=== PATIENT | female | born 1980 | race Caucasian/White ===

== ENCOUNTER 2018-07-10 11:47 | Inpatient (IN) ==
--- NOTE | 2018-07-10 12:21 | Emergency Department Note ---
Disposition Clinical Impression: Cellulitis Disposition: Admitted As Inpatient Condition: Good Time of Disposition: 16:37 Skin/Abscess/FB HPI Chief complaint: ED Skin/Abscess/Foreign Body Stated complaint: Vaginal Abscess,ABD Pain,fever Time Seen by Provider: 07/10/18 11:52 Source: patient Mode of arrival: ambulatory Limitations: no limitations Nursing Notes Reviewed: Yes Vital Signs Reviewed: Yes HPI Narrative: Patient presents to the ED the chief complaint of an abscess to her pubic area. States that she has had some folliculitis-type symptoms over the last couple weeks, but this most recent one started about 4 days ago and has progressively worsened. She went to urgent care yesterday and was placed on Bactrim and told to come the ER if things get worse. She woke up this morning. The pain and swelling was worse, extending down into her labia with feeling generally weak and fatigued. No fever or chills. States she does not feel like she is getting any better. She recently had an endometrial ablation with Dr. Mccollum and states she has had some vaginal discharge but that has been no change since the procedure. No chest pain or shortness breath. Home Medications Medication Instructions Recorded Confirmed Cetirizine HCl [Zyrtec] 10 mg PO DAILY 05/25/18 07/10/18 Promethazine HCl 12.5 mg PO TID PRN 05/25/18 07/10/18 Rizatriptan Benzoate [Maxalt] 10 mg PO Q2H PRN 05/25/18 07/10/18 Topiramate [Topamax] 100 mg PO BID 05/25/18 07/10/18 buPROPion HCl [Bupropion HCl Sr] 200 mg PO BID 05/25/18 07/10/18 clonazePAM [Klonopin] 0.5 mg PO DAILY PRN 05/25/18 07/10/18 Allergies Allergy/AdvReac Type Severity Reaction Status Date / Time No Known Allergies Allergy Verified 07/09/18 19:59 Review of Systems: As reviewed in the HPI. All other systems reviewed are negative or normal. Past Medical History - Past Medical History Attestation: Yes The following information was validated with the patient. Source: patient Medical history: Reports: non-contributory Psychiatric history: Reports: anxiety, depression - Social History Smoking Status: Never smoker Smokeless Tobacco Status: No Alcohol use: Reports: none Drug use: Reports: none Physical Exam CONSTITUTIONAL: [well appearing, alert and in no acute distress] EYES: [EOMI, clear conjunctiva, PERRLA] HENT: [Normocephalic, atraumatic, moist mucus membranes, normal oropharynx] NECK: [normal inspection, full ROM, trachea midline, no obvious swelling] PULMONARY: [normal lung sounds bilaterally, normal chest rise and fall, no respiratory distress or stridor, no wheezes, no rales, no rhonchi CARDIOVASCULAR: [regular rate, regular rhythm, normal heart sounds, no murmurs, distal extremities are warm and well perfused] GASTROINSTESTINAL: [soft, non-tender, non-rigid, non-distended, no guarding, no rebound, normal bowel sounds] GENITOURINARY/RECTAL: [deferred] NEUROLOGIC: [Alert, oriented x3, normal speech, moves all extremities] EXTREMITIES: [Normal inspection, full ROM, no tenderness, no pedal edema, normal capillary refill] MUSCULOSKELETAL: [no gross deformities, atraumatic] SKIN: [There is a large poorly circumscribed area of swelling on the midline mons pubis with mild fluctuance and erythema with surrounding cellulitis and warmth. There is no head or drainage. Moderately tender extending down into the labia worse on the right and left. No vaginal discharge. No cyanosis, no diaphoresis, normal color.] PSYCHIATRIC: [normal mood and affect] Course Course Narrative: Patient presenting with a mons pubis abscess. It is swollen and erythematous. There is no areas of ischemia or obvious abscess. Will bedside ultrasound to evaluate for abscess for incision and drainage. - Reevaluation(s) Reevaluation #1: US probe malfunction, could not evaluate cellulitis vs abscess. Will get labs/ IVF/CT Time: 12:53 Reevaluation #2: CT did not show abscess. will admit to hospitalist service. Vital Signs Temperature 98.6 F 07/10/18 11:50 Pulse Rate 99 07/10/18 11:50 Respiratory Rate 15 07/10/18 11:50 Blood Pressure 110/56 07/10/18 11:50 O2 Sat by Pulse Oximetry 98 07/10/18 11:50 Temperature 98.0 F 07/10/18 18:06 Pulse Rate 85 07/10/18 18:06 Respiratory Rate 17 07/10/18 18:06 Blood Pressure 117/79 07/10/18 18:06 O2 Sat by Pulse Oximetry 97 07/10/18 18:06 Oxygen Delivery Oxygen Delivery Room Air Procedures - Ultrasound-Other Narrative: Emergency Department Limited Focused Soft-tissue Bedside Ultrasound Indication: cellultis, rule out fluid collection/abscess Findings: A bedside limited focused ultrasound of the soft tissue was performed by myself in the emergency department. Images were not saved to the ultrasound machine hard drive due to device malfunction.A high frequency linear array probe was utilized to visualize the soft-tissue structures in transverse and longitudinal views but was indeterminate due to probe malfunction and no definite imaging could be visualized. Impression: unable to assess due to equipment malfunction. Skin/Abscess/Foreign Body - Lab Data Result diagrams: 07/10/18 13:39 07/10/18 13:04 Lab Results 07/10/18 07/10/18 07/10/18 Range/Units 13:04 13:25 13:39 WBC 12.0 H (4.3-11.1) K/mcL RBC 4.63 (3.82-4.97) M/mcL Hgb 13.3 (11.5-15.4) g/dL Hct 40.2 (35.3-44.9) % MCV 86.8 (83.0-100.0) fL MCH 28.7 (28.0-33.3) pg MCHC 33.1 (31.6-35.5) g/dL RDW 13.0 (11.5-14.5) % Plt Count 208 (140-400) K/mcL MPV 9.9 (9.4-12.4) fL Immature Gran % 0.3 (0-4) % Seg Neutrophils % 67.5 % Lymphocytes % 22.1 % Monocytes % 7.5 % Eosinophils % 2.1 % Basophils % 0.5 % Neutrophils # 8.1 (1.6-8.9) K/mcL Lymphocytes # 2.7 (0.6-4.6) K/mcL Monocytes # 0.9 (0.0-1.3) K/mcL Eosinophils # 0.3 (0.0-0.6) K/mcL Basophils # 0.1 (0.0-0.2) K/mcL Immature Plt Fraction 2.8 (1.1-6.1) % Sodium 135 L (136-145) mEq/L Potassium 3.8 (3.5-5.1) mEq/L Chloride 105 (98-107) mEq/L Carbon Dioxide 22 L (23-29) mEq/L BUN 10 (6-20) mg/dL Creatinine 0.89 (0.60-1.20) mg/dL Est GFR ( Amer) > 60 (> 60) Est GFR (Non-Af Amer) > 60 (> 60) BUN/Creatinine Ratio 11 (6-26) Glucose 84 (70-105) mg/dL Calculated Osmolality 278 L (280-300) Calcium 8.7 (8.6-10.3) mg/dL Specimen Rejected Clotted
[2018-07-10] MEDS ORDERED: *HR* OxyCODONE/APAP 5/325 TABLET PO ONE (12:25)
[2018-07-10] MEDS ORDERED: Lidocaine/EPI 1:100k 1% 30 ML VIAL INFILT ONE (12:30)
[2018-07-10] MEDS ORDERED: *HR* HYDROmorphone (PF) 1 MG/ML SYRINGE IVP ONE (12:52)
[2018-07-10] MEDS ORDERED: Isovue-370 500 ML INFUS..BTL IV ONE (12:52)
[2018-07-10] MEDS ORDERED: 0.9 % Sodium Chloride 1,000 ML IVC ONE (12:52)
--- NOTE | 2018-07-10 13:06 | Emergency Department Note ---
Disposition Clinical Impression: Cellulitis Disposition: Admitted As Inpatient Condition: Good General Adult HPI - General Chief complaint: ED Skin/Abscess/Foreign Body Stated complaint: Vaginal Abscess,ABD Pain,fever Time Seen by Provider: 07/10/18 11:52 - History of Present Illness Pain Scale: 7 - Related Data Home Medications Medication Instructions Recorded Confirmed Cetirizine HCl [Zyrtec] 10 mg PO DAILY 05/25/18 07/10/18 Promethazine HCl 12.5 mg PO TID PRN 05/25/18 07/10/18 Rizatriptan Benzoate [Maxalt] 10 mg PO Q2H PRN 05/25/18 07/10/18 Topiramate [Topamax] 100 mg PO BID 05/25/18 07/10/18 buPROPion HCl [Bupropion HCl Sr] 200 mg PO BID 05/25/18 07/10/18 clonazePAM [Klonopin] 0.5 mg PO DAILY PRN 05/25/18 07/10/18 Allergies Allergy/AdvReac Type Severity Reaction Status Date / Time No Known Allergies Allergy Verified 07/09/18 19:59 Past Medical History - Past Medical History Medical history: Reports: non-contributory Psychiatric history: Reports: anxiety, depression - Social History Smoking Status: Never smoker Smokeless Tobacco Status: No Alcohol use: Reports: none Drug use: Reports: none Course Vital Signs Temperature 98.6 F 07/10/18 11:50 Pulse Rate 99 07/10/18 11:50 Respiratory Rate 15 07/10/18 11:50 Blood Pressure 110/56 07/10/18 11:50 O2 Sat by Pulse Oximetry 98 07/10/18 11:50 Temperature 98.0 F 07/10/18 18:06 Pulse Rate 85 07/10/18 18:06 Respiratory Rate 17 07/10/18 18:06 Blood Pressure 117/79 07/10/18 18:06 O2 Sat by Pulse Oximetry 97 07/10/18 18:06 Oxygen Delivery Oxygen Delivery Room Air Medical Decision Making - Lab Data Result diagrams: 07/10/18 13:39 07/10/18 13:04 Lab Results 07/10/18 07/10/18 07/10/18 Range/Units 13:04 13:25 13:39 WBC 12.0 H (4.3-11.1) K/mcL RBC 4.63 (3.82-4.97) M/mcL Hgb 13.3 (11.5-15.4) g/dL Hct 40.2 (35.3-44.9) % MCV 86.8 (83.0-100.0) fL MCH 28.7 (28.0-33.3) pg MCHC 33.1 (31.6-35.5) g/dL RDW 13.0 (11.5-14.5) % Plt Count 208 (140-400) K/mcL MPV 9.9 (9.4-12.4) fL Immature Gran % 0.3 (0-4) % Seg Neutrophils % 67.5 % Lymphocytes % 22.1 % Monocytes % 7.5 % Eosinophils % 2.1 % Basophils % 0.5 % Neutrophils # 8.1 (1.6-8.9) K/mcL Lymphocytes # 2.7 (0.6-4.6) K/mcL Monocytes # 0.9 (0.0-1.3) K/mcL Eosinophils # 0.3 (0.0-0.6) K/mcL Basophils # 0.1 (0.0-0.2) K/mcL Immature Plt Fraction 2.8 (1.1-6.1) % Sodium 135 L (136-145) mEq/L Potassium 3.8 (3.5-5.1) mEq/L Chloride 105 (98-107) mEq/L Carbon Dioxide 22 L (23-29) mEq/L BUN 10 (6-20) mg/dL Creatinine 0.89 (0.60-1.20) mg/dL Est GFR ( Amer) > 60 (> 60) Est GFR (Non-Af Amer) > 60 (> 60) BUN/Creatinine Ratio 11 (6-26) Glucose 84 (70-105) mg/dL Calculated Osmolality 278 L (280-300) Calcium 8.7 (8.6-10.3) mg/dL Specimen Rejected Clotted Attestation Statement - Attestation Attestation: I examined this patient and my medical decision-making was reviewed with the Resident Physician. I agree with the documented findings, disposition and treatment plan as described except to the extent set forth below. Patient presents to the ED with an abscess. Patient states the symptoms started last weekend with a pimple. She states she drained Friday but it is progressed. Went to urgent care yesterday and was started on Bactrim. On examination she is a large fluctuant area over the mons pubis. She has erythema and swelling ascending inferiorly into her labia majora. Plan. CT pelvis with contrast. CT shows cellulitis. Patient on IV antibiotic. She has been worsening on by mouth. We will admit.
[2018-07-10] MEDS ORDERED: Piperacillin/Tazobactam 3.375 GM in 0.9 % Sodium Chloride Mini Bag 100 ML IVPB ONE (13:07)
[2018-07-10 15:01] LABS: BUN/Creatinine Ratio 11 (6-26); Blood Urea Nitrogen 10 mg/dL (6-20); Calcium 8.7 mg/dL (8.6-10.3); Carbon Dioxide 22 mEq/L (23-29); Chloride 105 mEq/L (98-107); Glucose 84 mg/dL (70-105); Osmolality,Calculated 278 (280-300); Potassium 3.8 mEq/L (3.5-5.1); Sodium 135 mEq/L (136-145); eGFR For Non-African Americans > 60 (> 60)
[2018-07-10 15:04] LABS: Basophils # 0.1 K/mcL (0.0-0.2); Basophils % 0.5 %; Eosinophils # 0.3 K/mcL (0.0-0.6); Eosinophils % 2.1 %; Hematocrit 40.2 % (35.3-44.9); Hemoglobin 13.3 g/dL (11.5-15.4); Immature Granulocytes % 0.3 % (0-4); Immature Platelets 2.8 % (1.1-6.1); Lymphocytes # 2.7 K/mcL (0.6-4.6); Lymphocytes % 22.1 %; Mean Corpuscular HGB Conc 33.1 g/dL (31.6-35.5); Mean Corpuscular Hemoglobin 28.7 pg (28.0-33.3); Mean Corpuscular Volume 86.8 fL (83.0-100.0); Mean Platelet Volume 9.9 fL (9.4-12.4); Monocytes # 0.9 K/mcL (0.0-1.3); Monocytes % 7.5 %; Neutrophils # 8.1 K/mcL (1.6-8.9); Platelet Count 208 K/mcL (140-400); Red Blood Count 4.63 M/mcL (3.82-4.97); Segmented Neutrophils % 67.5 %
[2018-07-10] MEDS ORDERED: *HR* Promethazine 25 MG/ML VIAL IVP PRN (17:49)
[2018-07-10] MEDS ORDERED: Naloxone 0.4 MG/ML INJ IVP PRN (17:49)
[2018-07-10] MEDS ORDERED: Ondansetron 4 MG/2 ML VIAL IVP PRN (17:49)
--- NOTE | 2018-07-10 18:30 | Internal Med History&Physical ---
Date of Encounter: 07/10/18 Time of Encounter: 18:25 Internal Medicine - H&P: HPI Chief complaint: Supra pubic rash, swellign and pain Admitted From: Emergency Dept Plans for Post Hospital Care: Home History of present illness: Ms. Canchola is a 38 year old female with known past medical history of endometriosis recent status post ablation done by Dr. Mccollum in May now she presented emergency room complaining about suprapubic worsening swelling with tenderness. Patient stated that she noticed a small pimple like growth on the supra pubic area a week ago which seems to progressive worsening. She went to local urgent care center last night who started her on Bactrim. However patient symptoms has not improved today seems to be even worsening swelling with edema and tenderness which prompted her to come to our emergency room. Here in the ER her CT of the abdomen and pelvis showed cellulitis of the anterior pelvic wall. Patient was started on empirical antibiotic Zosyn and vancomycin. Patient denied any history of STD. No trauma. Denied any previous h /o cellulites / abscess Past Med Surg Social Fam HX - Past Medical History Medical history: hyperlipidemia, hypertension Psychiatric history: anxiety, depression - Past Surgical History Additional surgical history: uterine ablasion 05/2018 - Social History Smoking Status: Never smoker Smokeless Tobacco Status: No Alcohol use: rarely Drug use: none - Additional Family History Additional family history: Family hsitory reviewed and non contribuitory to current problem. Internal Medicine - H&P: Meds Cetirizine HCl [Zyrtec] 10 mg PO DAILY 05/25/18 [History] Promethazine HCl 12.5 mg PO TID PRN 05/25/18 [History] Rizatriptan Benzoate [Maxalt] 10 mg PO Q2H PRN 05/25/18 [History] Topiramate [Topamax] 100 mg PO BID 05/25/18 [History] buPROPion HCl [Bupropion HCl Sr] 200 mg PO BID 05/25/18 [History] clonazePAM [Klonopin] 0.5 mg PO DAILY PRN 05/25/18 [History] 3 Allergy/AdvReac Type Severity Reaction Status Date / Time No Known Allergies Allergy Verified 07/09/18 19:59 All Systems PM: A 10-system review of systems was performed and is negative for pertinent findings except as documented above in the HPI. Review of systems: All the systems are reviewed everything is benign except the systems and symptoms I mentioned in the history of present illness - Constitutional Vitals: Temp Pulse Resp BP Pulse Ox 98.0 F 85 17 117/79 97 07/10/18 18:06 07/10/18 18:06 07/10/18 18:06 07/10/18 18:06 07/10/18 18:06 General appearance: Present: cooperative, A&O X 3, no acute distress, answers questions appropriately Exam: See below - Head Head exam: Present: atraumatic, normal inspection - Neck Neck exam general surgery: Present: supple - Respiratory Respiratory exam: Present: decreased breath sounds. Absent: rales, respiratory distress, rhonchi, wheezes - Cardiovascular Cardiovascular exam: Present: RRR, +S1, +S2. Absent: tachycardia - GI/Abdominal GI/Abdominal exam: Present: normal bowel sounds, soft. Absent: rebound, rigid, tenderness - External exam: Present: erythema, swelling (Suprapubic area) Additional comments: Noticed fire times 5 cm size moderate swelling with edema and tenderness of the suprapubic region does feel like loculated fluid collection Suprapubic area - Extremities Exam Extremities exam: Absent: calf tenderness, pedal edema, tenderness - Back Exam Back exam: Absent: CVA tenderness (L), CVA tenderness (R) - Neurological Exam Neurological exam: Present: alert, oriented X3 - Psychiatric Psychiatric exam: Present: normal affect, normal mood - Skin Skin exam: Absent: rash Internal Med - H&P Results - Labs CBC & Chem 7: 07/10/18 13:39 07/10/18 13:04 - Assessment and plan (1) Cellulitis of pubic region Current Visit: Yes Status: Acute Assessment and plan: Place the patient into Med Surg for observation failed outpatient therapy with oral antibiotic started on empirical antibiotic with IV Zosyn and vancomycin she may get benefit with I & D tax investigator consulted IV hydration (2) Anxiety Current Visit: Yes Status: Acute Assessment and plan: Resumed home medication - Time Spent With Patient Total time spent is greater than 50% in coordination of care (as documented) at patient's floor/unit and/or counseling patient:
[2018-07-10] MEDS ORDERED: (Rizatriptan Benzoate [Maxalt] 10 MG) PO PRN (18:37)
--- NOTE | 2018-07-10 19:22 | OB/GYN Consult Note ---
Date of Encounter: 07/10/18 Time of Encounter: 19:18 Assessment and Plan (1) History of MRSA infection Current Visit: Yes Status: Acute MRSA precautions (2) Anxiety Current Visit: Yes Status: Acute (3) Cellulitis Current Visit: Yes Status: Acute Continue current antibiotics possible I&D it area becomes fluctuant after 24-48 hours of antibiotics Qualifiers: Site of cellulitis: other site Qualified Code(s): L03.818 - Cellulitis of other sites (4) Cellulitis of pubic region Current Visit: Yes Status: Acute History of Present Illness Consult date: 07/10/18 Reason for consult: other (Cellulitis mons pubis) History of present illness: Patient is a 38-year-old every 3 para 3 last period approximately 2 months ago status post endometrial ablation in May. Presented to the emergency room complaining of severe pain and swelling to the mons pubis. Patient states over the weekend she had a small lesion in the mons which she thought was just an infected hair follicle she thought it would go away but states is starts progressively getting worse than over the past 48 hours the whole mons became swollen and red and very painful. Patient went to urgent care who recommended she come to the emergency room. Patient did not arrive to the emergency room with she was then admitted by the hospitalists for medical management. We asked to come and assess the patient to determine if the patient need an I&D of the area. While in the emergency room a CT scanning an ultrasound was performed both are relatively unremarkable it just showed stranding of the fatty tissue but no free fluid suggestive of anything I could I&D. Patient approximately 5 years ago did have an abscess in her nose which they cultured out positive for MRSA. Patient is not complaining of any issues from her ablation does not have any periods anymore. She did do a follow-up with her stoper after that surgery and everything was okay. She did not call our office when this came up but it would go away this ended up coming to the emergency room. Past Med Surg Social Fam HX - Past Medical History Source: patient, old records reviewed Medical history: hyperlipidemia, hypertension Psychiatric history: anxiety, depression - Past Surgical History Additional surgical history: uterine ablasion 05/2018 - Social History Smoking Status: Never smoker Smokeless Tobacco Status: No Alcohol use: rarely Drug use: none Recent Out of Country Travel Within the Last 8 Weeks: No Exposure or Possible Exposure to Illness During Travel: No - Family History Mother Living Status: Still Living Hx Family Cardiac Disorders: Yes (HTN) Hx Family Respiratory Disorders: No Hx Family Cancer: No Hx Family GI Disorders: No Hx Family Genitourinary Disorders: Yes (kidney stones) Hx Family Endocrine Disorder: No Hx Family Musculoskeletal Disorders: No Hx Family Neuromuscular Disorders: No Hx Family Neurologic Disorders: No Hx Family HEENT Disorders: No Hx Family Autoimmune Disorders: No Hx Family Reproductive Disorders: No Hx Family Psychosocial Disorders: Yes Hx Family Medical Disorders: No Father Living Status: Still Living Hx Family Cardiac Disorders: No Hx Family Respiratory Disorders: No Hx Family Cancer: No Hx Family GI Disorders: No Hx Family Genitourinary Disorders: No Hx Family Endocrine Disorder: No Hx Family Musculoskeletal Disorders: No Hx Family Neuromuscular Disorders: No Hx Family Neurologic Disorders: No Hx Family HEENT Disorders: No Hx Family Autoimmune Disorders: No Hx Family Reproductive Disorders: No Hx Family Psychosocial Disorders: No Hx Family Medical Disorders: No - Additional Family History Additional family history: Family history noncontributory at this time Medications and Allergies Cetirizine HCl [Zyrtec] 10 mg PO DAILY 05/25/18 [History] Promethazine HCl 12.5 mg PO TID PRN 05/25/18 [History] Rizatriptan Benzoate [Maxalt] 10 mg PO Q2H PRN 05/25/18 [History] Topiramate [Topamax] 100 mg PO BID 05/25/18 [History] buPROPion HCl [Bupropion HCl Sr] 200 mg PO BID 05/25/18 [History] clonazePAM [Klonopin] 0.5 mg PO DAILY PRN 05/25/18 [History] 3 Allergy/AdvReac Type Severity Reaction Status Date / Time No Known Allergies Allergy Verified 07/09/18 19:59 Review of Systems All Systems: reviewed and no additional remarkable complaints except as stated Genitourinary Female: other (Swelling and pain of the mons pubis) Menstruation: amenorrhea (Status post endometrial ablation) Exam - Vital Signs Vital signs: Initial Vital Signs Temp Pulse Resp BP Pulse Ox 98.6 F 99 15 110/56 98 07/10/18 11:50 07/10/18 11:50 07/10/18 11:50 07/10/18 11:50 07/10/18 11:50 - Constitutional Constitutional: well developed, well nourished, mild distress, obese - HEENT HEENT: EOMI, PERRL, Mucus Membranes Moist - Neck Neck exam: full ROM - Lungs Respiratory exam: CTAB - Cardiovascular Cardiovascular exam: RRR - Abdomen Abdomen: Present: diffuse tenderness (Mons pubis significantly swollen heart to palpation with cellulitis noted throughout the entire mons. Does not extend into the abdominal wall does not extend laterally into the thighs and does not extend distally into the labia. There is no fluctuation that would allow any type of I&D at this time) Results Result Diagrams: 07/10/18 13:39 07/10/18 13:04 Abnormal lab results WBC 12.0 K/mcL (4.3-11.1) H 07/10/18 13:39 Sodium 135 mEq/L (136-145) L 07/10/18 13:04 Carbon Dioxide 22 mEq/L (23-29) L 07/10/18 13:04 Calculated Osmolality 278 (280-300) L 07/10/18 13:04 All other labs normal. Consult Discharge Plan - Plan Referrals: Renetta Edwards MD [Primary Care Provider] -
[2018-07-10] MEDS: *HR* HYDROcodone/Acet 5/325 mg TABLET PO PRN (20:11)
[2018-07-10] MEDS: BuPROPion SR (12 HR) 100 MG TABLET PO SCH (20:11)
[2018-07-10] MEDS: 0.9 % Sodium Chloride 1,000 ML IVC SCH (20:11)
[2018-07-10] MEDS: Topiramate 100 MG TABLET PO SCH (20:11)
[2018-07-10] MEDS ORDERED: Metoclopramide 10 MG/2 ML VIAL IVP ONE (23:00)
[2018-07-10] MEDS ORDERED: Ketorolac 15 MG/ML VIAL IVP ONE (23:00)
[2018-07-10] MEDS: Piperacillin/Tazobactam 3.375 GM in 0.9 % Sodium Chloride Mini Bag 100 ML IVPB SCH (23:27)
[2018-07-11 03:48] LABS: Hematocrit 38.4 % (35.3-44.9); Hemoglobin 12.7 g/dL (11.5-15.4); Mean Corpuscular HGB Conc 33.1 g/dL (31.6-35.5); Mean Corpuscular Hemoglobin 28.3 pg (28.0-33.3); Mean Corpuscular Volume 85.7 fL (83.0-100.0); Mean Platelet Volume 9.8 fL (9.4-12.4); Platelet Count 215 K/mcL (140-400); Red Blood Count 4.48 M/mcL (3.82-4.97); Red Cell Distribution Width 12.9 % (11.5-14.5)
[2018-07-11 04:02] LABS: BUN/Creatinine Ratio 11 (6-26); Blood Urea Nitrogen 8 mg/dL (6-20); Calcium 8.4 mg/dL (8.6-10.3); Carbon Dioxide 22 mEq/L (23-29); Chloride 106 mEq/L (98-107); Glucose 97 mg/dL (70-105); Osmolality,Calculated 278 (280-300); Potassium 3.9 mEq/L (3.5-5.1); Sodium 135 mEq/L (136-145); eGFR For Non-African Americans > 60 (> 60)
[2018-07-11] MEDS: 0.9 % Sodium Chloride 1,000 ML IVC SCH (04:22)
[2018-07-11] MEDS: *HR* HYDROcodone/Acet 5/325 mg TABLET PO PRN ×3 (04:32→17:22)
[2018-07-11] MEDS: BuPROPion SR (12 HR) 100 MG TABLET PO SCH ×2 (08:48→21:23)
[2018-07-11] MEDS: Topiramate 100 MG TABLET PO SCH ×2 (08:48→21:23)
[2018-07-11] MEDS: Acetaminophen 325 MG TABLET PO PRN ×2 (08:48→14:05)
[2018-07-11] MEDS: Loratadine 10 MG TABLET PO SCH (08:48)
[2018-07-11] MEDS: Piperacillin/Tazobactam 3.375 GM in 0.9 % Sodium Chloride Mini Bag 100 ML IVPB SCH ×3 (08:49→23:32)
--- NOTE | 2018-07-11 13:40 | Internal Med Progress Note ---
Hospitalist Progress Note - Encounter Date of Encounter: 07/11/18 Time of Encounter: 10:00 - Subjective Interval History: Ms. Canchola is a 38 year old female with known past medical history of endometriosis recent status post ablation done by Dr. Mccollum in May now she presented emergency room complaining about suprapubic worsening swelling with tenderness. Patient stated that she noticed a small pimple like growth on the supra pubic area a week ago which seems to progressive worsening. She went to local urgent care center last night who started her on Bactrim. Her CT of the abdomen and pelvis showed cellulites of the anterior pelvic wall. Patient was started on empirical antibiotic Zosyn and vancomycin. Pt states she is feeling little better today. Still has moderate pain and swelling in the pubic region - Exam Vitals: Temp Pulse Resp BP Pulse Ox 97.6 F 80 18 107/70 99 07/11/18 11:53 07/11/18 11:53 07/11/18 11:53 07/11/18 11:53 07/11/18 11:53 Exam: Gen: Alert, awake, Oriented to time,place and person Chest: Diminished breath sounds B/L, No wheezing, No crackles, No rales Heart: S1S2+ RRR No murmurs Abd: Soft, NT, BS +, No organomegaly Ext: No edema, pulses are palpable, No calf tenderness : Improving swelling and erythema noticed over supra pubic region. Neuro : Benign findings Skin: No rash. - Assessment and Plan (1) Cellulitis of pubic region Current Visit: Yes Status: Acute Assessment and Plan: Improving Cont empirical antibiotic with IV Zosyn and vancomycin Engineering Secretary consulted..appreciate Engineering Secretary recommendation d/c IVF continue symptomatic and supportive care with local warm compressions and analgesics (2) Anxiety Current Visit: Yes Status: Acute Assessment and Plan: Resumed home medication (3) Migraine Current Visit: Yes Status: Chronic Assessment and Plan: Resumed home medications - Time Spent with Patient Total time spent is greater than 50% in coordination of care (as documented) at patient's floor/unit and/or counseling patient: Internal Medicine: Result - Labs CBC & Chem 7: 07/11/18 02:48 07/11/18 02:48 Labs: Short CBC 07/11/18 Range/Units 02:48 WBC 10.0 (4.3-11.1) K/mcL Hgb 12.7 (11.5-15.4) g/dL Hct 38.4 (35.3-44.9) % Plt Count 215 (140-400) K/mcL [facility] 07/11/18 02:48 Sodium 135 L Potassium 3.9 Chloride 106 Carbon Dioxide 22 L BUN 8 Creatinine 0.70 Glucose 97 Calcium 8.4 L Consult Discharge Plan - Plan Referrals: Renetta Edwards MD [Primary Care Provider] - (FOLLOW UP HAS BEEN REQUESTED.) (3) Migraine Qualifiers: Migraine type: unspecified Status migrainosus presence: without status migrainosus Intractability: not intractable Qualified Code(s): G43.909 - Migraine, unspecified, not intractable, without status migrainosus
[2018-07-11] MEDS ORDERED: Ketorolac 15 MG/ML VIAL IVP ONE (20:58)
--- NOTE | 2018-07-11 21:06 | OB/GYN Progress Note ---
Date of Encounter: 07/11/18 Time of Encounter: 21:04 - Assessment and Plan (1) Cellulitis of pubic region Current Visit: Yes Status: Acute Continue antibiotic and pain management per medicine service will continue to follow. Subjective - Subjective Interval history: Pt states still has pain, to mons. Has been up and ambulating, mons has started to have a small amount of purulent drainage after shower today. Patient reports: appetite normal, voiding normally, pain well controlled Objective - Vital Signs Latest vital signs: Vital Signs Temp Pulse Resp BP Pulse Ox 07/11/18 20:04 98.3 F 97 16 112/68 97 07/11/18 15:40 97.9 F 90 18 107/70 100 07/11/18 11:53 97.6 F 80 18 107/70 99 07/11/18 07:26 98.2 F 82 16 109/66 96 07/11/18 04:42 98.0 F 79 16 106/73 100 07/10/18 23:32 98.2 F 100 16 122/81 97 Intake and Output 07/11/18 07/11/18 07/11/18 07:59 15:59 23:59 Intake Total 1350 / 1350 580 / 580 Balance 1350 / 1350 580 / 580 Intake: IV Fluids 1350 / 1350 100 / 100 0.9 % Sodium Chloride 1,000 ML 1000 / 1000 @ 125 mls/hr IVC .Q8H [facility] Rx#: [id number] Zosyn 3.375 GM In 0.9 % Sodium 100 / 100 100 / 100 Chloride (Mini-Bag +) 100 ML @ 25 mls/hr IVPB Q8HR [facility] Rx#: [id number] Vancocin 1,500 MG In 0.9 % 250 / 250 Sodium Chloride 250 ML @ 167 mls/hr IVPB Q12H [facility] Rx#: [id number] Oral 480 / 480 Other: Meal Lunch Percent of Meal Consumed 100% Weight 96.5 kg Patient Weight 07/11/18 23:59 Weight 96.5 kg - I&O's I&O's: Intake & Output 07/08/18 07/09/18 07/10/18 07/11/18 23:59 23:59 23:59 23:59 Intake Total 250 / 1350 1930 / 1930 Balance 250 / 1350 1930 / 1930 Weight 96.5 kg 96.5 kg - Exam Abdomen: Present: soft Comments: Mons with erythema to entire area with central located mass noted with pustules and small amount of purulent drainage. - Labs Labs: Abnormal lab results Sodium 135 mEq/L (136-145) L 07/11/18 02:48 Carbon Dioxide 22 mEq/L (23-29) L 07/11/18 02:48 Calculated Osmolality 278 (280-300) L 07/11/18 02:48 Calcium 8.4 mg/dL (8.6-10.3) L 07/11/18 02:48 Consult Discharge Plan - Plan Referrals: Renetta Edwards MD [Primary Care Provider] - (FOLLOW UP HAS BEEN REQUESTED.)
[2018-07-12] MEDS: *HR* HYDROcodone/Acet 5/325 mg TABLET PO PRN ×2 (01:37→19:27)
[2018-07-12 05:21] LABS: BUN/Creatinine Ratio 9 (6-26); Blood Urea Nitrogen 7 mg/dL (6-20); Vancomycin,Trough 10 mcg/mL (5-10); eGFR For Non-African Americans > 60 (> 60)
[2018-07-12] MEDS: Ibuprofen 400 MG TABLET PO PRN (05:44)
[2018-07-12] MEDS: Topiramate 100 MG TABLET PO SCH ×2 (09:39→19:59)
[2018-07-12] MEDS: Piperacillin/Tazobactam 3.375 GM in 0.9 % Sodium Chloride Mini Bag 100 ML IVPB SCH ×2 (09:39→17:55)
[2018-07-12] MEDS: Loratadine 10 MG TABLET PO SCH (09:39)
[2018-07-12] MEDS: BuPROPion SR (12 HR) 100 MG TABLET PO SCH ×2 (09:39→19:59)
[2018-07-12] MEDS ORDERED: Lidocaine -MPF 1% 5 ML AMPUL INFILT ONE (10:17)
--- NOTE | 2018-07-12 10:21 | OB/GYN Progress Note ---
Date of Encounter: 07/12/18 Time of Encounter: 10:18 - Assessment and Plan (1) History of MRSA infection Current Visit: Yes Status: Acute (2) Anxiety Current Visit: Yes Status: Acute (3) Cellulitis Current Visit: Yes Status: Acute Qualifiers: Site of cellulitis: other site Qualified Code(s): L03.818 - Cellulitis of other sites (4) Cellulitis of pubic region Current Visit: Yes Status: Acute willl do an I&D of the vulvar abscess Subjective - Subjective Interval history: patient states the area started to drain last night, states they did take cultures of it this morning, states still very painful. Patient reports: appetite normal, voiding normally Objective - Vital Signs Latest vital signs: Vital Signs Temp Pulse Resp BP Pulse Ox 07/12/18 07:23 97.9 F 83 16 100/61 97 07/12/18 03:16 98.5 F 103 16 101/64 97 07/11/18 23:13 98.3 F 105 16 112/73 100 07/11/18 20:04 98.3 F 97 16 112/68 97 07/11/18 15:40 97.9 F 90 18 107/70 100 07/11/18 11:53 97.6 F 80 18 107/70 99 Intake and Output 07/11/18 07/12/18 07/12/18 23:59 07:59 15:59 Intake Total 350 / 350 480 / 480 Balance 350 / 350 480 / 480 Intake: IV Fluids 350 / 350 Zosyn 3.375 GM In 0.9 % Sodium 100 / 100 Chloride (Mini-Bag +) 100 ML @ 25 mls/hr IVPB Q8HR [facility] Rx#: [id number] Vancocin 1,500 MG In 0.9 % 250 / 250 Sodium Chloride 250 ML @ 167 mls/hr IVPB Q12H [facility] Rx#: [id number] Oral 480 / 480 Other: Meal Breakfast Percent of Meal Consumed 100% Weight 97.3 kg Patient Weight 07/12/18 23:59 Weight 97.3 kg - I&O's I&O's: Intake & Output 07/09/18 07/10/18 07/11/18 07/12/18 23:59 23:59 23:59 23:59 Intake Total 250 / 1350 2280 / 2280 480 / 480 Balance 250 / 1350 2280 / 2280 480 / 480 Weight 96.5 kg 96.5 kg 97.3 kg - Exam Abdomen: Present: other (mons still swollen with cellulites still present, there in now an area that has come to a head and has a fluctuant area with necrosis of the overlying skin, recommended I&D of the area) - Labs Labs: Abnormal lab results Sodium 135 mEq/L (136-145) L 07/11/18 02:48 Carbon Dioxide 22 mEq/L (23-29) L 07/11/18 02:48 Calculated Osmolality 278 (280-300) L 07/11/18 02:48 Calcium 8.4 mg/dL (8.6-10.3) L 07/11/18 02:48 Consult Discharge Plan - Plan Referrals: Renetta Edwards MD [Primary Care Provider] - (FOLLOW UP HAS BEEN REQUESTED.)
[2018-07-12] MEDS ORDERED: Lidocaine -MPF 1% 5 ML AMPUL ONE (10:38)
[2018-07-12] MEDS ORDERED: *HR* HYDROmorphone 2 MG/ML SYRINGE IVP ONE (11:00)
--- NOTE | 2018-07-12 11:05 | Operative Note ---
Date of procedure: 07/12/18 Pre-op diagnosis: vulvar abscess Post-op diagnosis: same Procedure: Incision and Drainage Vulvar abscess Complications: none Anesthesia: local Surgeon: Rico Xiao Was there an learning support assistant present: No Estimated blood loss (cc): 10 Specimen: cultures vulvar abscess Condition: stable Disposition: floor Procedure in Detail: Patient is a 38-year-old female who was admitted with a abscess of the mons pubis. Patient had significant cellulitis and hardness to the mons pubis and was started on IV antibiotics the area started to drain and appeared to be fluctuant and I was asked to see if an I&D would help. Procedure: Patient did sign a consent and timeout was obtained she was placed in the supine position the mons was then prepped with Betadine and 1% lidocaine was used to infiltrate over the surface of the lesion. Using an 11 blade scalpel a 2 cm incision was then made approximately 2 cm deep. We did not get any purulent drainage from the area just appeared to be inflammatory changes to the underlying tissue. We did culture the area and quarter inch packing was then inserted. Clean dressing was applied. Patient tolerated procedure was somewhat uncomfortable give her some IV pain medication now.
--- NOTE | 2018-07-12 14:00 | Internal Med Progress Note ---
Hospitalist Progress Note - Encounter Date of Encounter: 07/12/18 Time of Encounter: 11:00 - Subjective Interval History: Ms. Canchola is a 38 year old female with known past medical history of endometriosis recent status post ablation done by Dr. Mccollum in May now she presented emergency room complaining about suprapubic worsening swelling with tenderness. Patient stated that she noticed a small pimple like growth on the supra pubic area a week ago which seems to progressive worsening. She went to local urgent care center last night who started her on Bactrim. Her CT of the abdomen and pelvis showed cellulites of the anterior pelvic wall. Patient was started on empirical antibiotic Zosyn and vancomycin. Pt states she is feeling little better today. Still has moderate pain and swelling in the pubic region. It started draining purulent pus since last night. - Exam Vitals: Temp Pulse Resp BP Pulse Ox 98.0 F 81 16 105/68 97 07/12/18 12:04 07/12/18 12:04 07/12/18 12:04 07/12/18 12:04 07/12/18 12:04 Exam: Gen: Alert, awake, Oriented to time,place and person Chest: Diminished breath sounds B/L, No wheezing, No crackles, No rales Heart: S1S2+ RRR No murmurs Abd: Soft, NT, BS +, No organomegaly Ext: No edema, pulses are palpable, No calf tenderness : 2 cm size .fluctuant area noticed over supra pubic region with open wound and purulent discharge Neuro : Benign findings Skin: No rash. - Assessment and Plan (1) Cellulitis of pubic region Current Visit: Yes Status: Acute Assessment and Plan: Abscess over Supra pubic region started darning now I & D done by Physical Sciences Instructor Dr. Jaimes today sent for wound cx Cont empirical antibiotic with IV Zosyn and vancomycin continue symptomatic and supportive care with local warm compressions and analgesics (2) Anxiety Current Visit: Yes Status: Acute Assessment and Plan: Resumed home medication (3) Migraine Current Visit: Yes Status: Chronic Assessment and Plan: Resumed home medications - Time Spent with Patient Total time spent is greater than 50% in coordination of care (as documented) at patient's floor/unit and/or counseling patient: Internal Medicine: Result - Labs CBC & Chem 7: 07/11/18 02:48 07/12/18 04:38 Labs: JACY 07/12/18 04:38 BUN 7 Creatinine 0.74 Consult Discharge Plan - Plan Referrals: Renetta Edwards MD [Primary Care Provider] - (FOLLOW UP HAS BEEN REQUESTED.) (3) Migraine Qualifiers: Migraine type: unspecified Status migrainosus presence: without status migrainosus Intractability: not intractable Qualified Code(s): G43.909 - Migraine, unspecified, not intractable, without status migrainosus
[2018-07-13] MEDS: Piperacillin/Tazobactam 3.375 GM in 0.9 % Sodium Chloride Mini Bag 100 ML IVPB SCH ×4 (00:13→23:16)
[2018-07-13] MEDS: Ibuprofen 400 MG TABLET PO PRN ×3 (00:13→22:47)
[2018-07-13] MEDS: *HR* HYDROcodone/Acet 5/325 mg TABLET PO PRN ×3 (05:54→18:34)
[2018-07-13] MEDS: Loratadine 10 MG TABLET PO SCH (07:30)
[2018-07-13] MEDS: BuPROPion SR (12 HR) 100 MG TABLET PO SCH ×2 (07:30→20:50)
[2018-07-13] MEDS: Topiramate 100 MG TABLET PO SCH ×2 (07:30→20:50)
[2018-07-13] MEDS: clonazePAM 0.5 MG TABLET PO PRN (10:09)
--- NOTE | 2018-07-13 10:10 | OB/GYN Consult Note ---
Date of Encounter: 07/13/18 Time of Encounter: 10:09 Assessment and Plan (1) Cellulitis of pubic region Current Visit: Yes Status: Acute History of Present Illness Reason for consult: other (Mons Infection) Past Med Surg Social Fam HX - Past Medical History Medical history: hyperlipidemia, hypertension Psychiatric history: anxiety, depression - Past Surgical History Additional surgical history: uterine ablasion 05/2018 - Social History Smoking Status: Never smoker Smokeless Tobacco Status: No Alcohol use: rarely Drug use: none - Family History Mother Living Status: Still Living Hx Family Cardiac Disorders: Yes (HTN) Hx Family Respiratory Disorders: No Hx Family Cancer: No Hx Family GI Disorders: No Hx Family Genitourinary Disorders: Yes (kidney stones) Hx Family Endocrine Disorder: No Hx Family Musculoskeletal Disorders: No Hx Family Neuromuscular Disorders: No Hx Family Neurologic Disorders: No Hx Family HEENT Disorders: No Hx Family Autoimmune Disorders: No Hx Family Reproductive Disorders: No Hx Family Psychosocial Disorders: Yes Hx Family Medical Disorders: No Father Living Status: Still Living Hx Family Cardiac Disorders: No Hx Family Respiratory Disorders: No Hx Family Cancer: No Hx Family GI Disorders: No Hx Family Genitourinary Disorders: No Hx Family Endocrine Disorder: No Hx Family Musculoskeletal Disorders: No Hx Family Neuromuscular Disorders: No Hx Family Neurologic Disorders: No Hx Family HEENT Disorders: No Hx Family Autoimmune Disorders: No Hx Family Reproductive Disorders: No Hx Family Psychosocial Disorders: No Hx Family Medical Disorders: No Medications and Allergies Cetirizine HCl [Zyrtec] 10 mg PO DAILY 05/25/18 [History] Promethazine HCl 12.5 mg PO TID PRN 05/25/18 [History] Rizatriptan Benzoate [Maxalt] 10 mg PO Q2H PRN 05/25/18 [History] Topiramate [Topamax] 100 mg PO BID 05/25/18 [History] buPROPion HCl [Bupropion HCl Sr] 200 mg PO BID 05/25/18 [History] clonazePAM [Klonopin] 0.5 mg PO DAILY PRN 05/25/18 [History] 3 Allergy/AdvReac Type Severity Reaction Status Date / Time No Known Allergies Allergy Verified 07/09/18 19:59 Exam - Vital Signs Vital signs: Initial Vital Signs Temp Pulse Resp BP Pulse Ox 98.6 F 99 15 110/56 98 07/10/18 11:50 07/10/18 11:50 07/10/18 11:50 07/10/18 11:50 07/10/18 11:50 Results Result Diagrams: 07/11/18 02:48 07/12/18 04:38 Abnormal lab results Sodium 135 mEq/L (136-145) L 07/11/18 02:48 Carbon Dioxide 22 mEq/L (23-29) L 07/11/18 02:48 Calculated Osmolality 278 (280-300) L 07/11/18 02:48 Calcium 8.4 mg/dL (8.6-10.3) L 07/11/18 02:48 All other labs normal. Consult Discharge Plan - Plan Referrals: Renetta Edwards MD [Primary Care Provider] - (FOLLOW UP HAS BEEN REQUESTED.)
--- NOTE | 2018-07-13 10:14 | OB/GYN Progress Note ---
Date of Encounter: 07/13/18 Time of Encounter: 10:11 - Assessment and Plan (1) Cellulitis of pubic region Current Visit: Yes Status: Acute OK to discharge from hospital per patient request per [employer] WORKER standpoint Daily packing with iodiform; states he will be able to pack without difficulty. Follow up in the office with Dr Mccollum on Friday. POC per consult with Dr Daley Subjective - Subjective Principal diagnosis: Cellulitis of Mons Interval history: Open area has yellow discharge on both ABD and packing, mild amount. No odor appreciated. Patient states pain is tolerable unless being touched. She desires to be discharged [facility]. Patient reports: appetite normal, voiding normally, ambulating normally, no pain well controlled Objective - Vital Signs Latest vital signs: Vital Signs Temp Pulse Resp BP Pulse Ox 07/13/18 06:54 98 F 79 16 119/75 99 07/13/18 05:53 103/70 07/13/18 04:08 98.0 F 79 16 97/67 100 07/12/18 23:28 98.2 F 93 16 108/61 100 07/12/18 20:19 97.8 F 67 15 108/58 94 07/12/18 15:49 97.3 F L 81 18 102/65 100 07/12/18 12:04 98.0 F 81 16 105/68 97 Intake and Output 07/12/18 07/13/18 07/13/18 23:59 07:59 15:59 Intake Total 350 / 350 470 / 470 360 / 360 Balance 350 / 350 470 / 470 360 / 360 Intake: IV Fluids 350 / 350 350 / 350 Zosyn 3.375 GM In 0.9 % Sodium 100 / 100 100 / 100 Chloride (Mini-Bag +) 100 ML @ 25 mls/hr IVPB Q8HR [facility] Rx#: [id number] Vancocin 1,500 MG In 0.9 % 250 / 250 250 / 250 Sodium Chloride 250 ML @ 167 mls/hr IVPB Q12H [facility] Rx#: [id number] Oral 120 / 120 360 / 360 Other: Meal Breakfast Percent of Meal Consumed 85% Weight 98 kg Patient Weight 07/13/18 23:59 Weight 98 kg - I&O's I&O's: Intake & Output 07/10/18 07/11/18 07/12/18 07/13/18 23:59 23:59 23:59 23:59 Intake Total 250 / 1350 2280 / 2280 1420 / 1420 830 / 830 Balance 250 / 1350 2280 / 2280 1420 / 1420 830 / 830 Weight 96.5 kg 96.5 kg 97.3 kg 98 kg - Exam Extremities: Present: normal Abdomen: Present: normal appearance. Absent: gravid Incision OB: Present: erythematous, dressed Comments: Dressing removed and packing removed. Flushed with saline, and repacked with iodiform gauze packing. ABD with paper tape reapplied. Patient tolerated well ; was crying out during procedure. RN asked to medicate patient with ordered pain medication. - Labs Labs: Abnormal lab results Sodium 135 mEq/L (136-145) L 07/11/18 02:48 Carbon Dioxide 22 mEq/L (23-29) L 07/11/18 02:48 Calculated Osmolality 278 (280-300) L 07/11/18 02:48 Calcium 8.4 mg/dL (8.6-10.3) L 07/11/18 02:48 Consult Discharge Plan - Plan Referrals: Renetta Edwards MD [Primary Care Provider] - (FOLLOW UP HAS BEEN REQUESTED.) Jace Mccollum MD [Partnered Physician] -
[2018-07-13] MEDS ORDERED: *HR* FentaNYL (PF) 100 MCG/2 ML VIAL IVP ONE (10:27)
[2018-07-13] MEDS ORDERED: *HR* FentaNYL (PF) 100 MCG/2 ML VIAL IVP PRN (15:36)
--- NOTE | 2018-07-13 15:43 | Internal Med Progress Note ---
Hospitalist Progress Note - Encounter Date of Encounter: 07/13/18 Time of Encounter: 15:40 - Subjective Interval History: Ms. Canchola is a 38 year old female with known past medical history of endometriosis recent status post ablation done by Dr. Mccollum in May now she presented emergency room complaining about suprapubic worsening swelling with tenderness. Patient stated that she noticed a small pimple like growth on the supra pubic area a week ago which seems to progressive worsening. She went to local urgent care center last night who started her on Bactrim. Her CT of the abdomen and pelvis showed cellulites of the anterior pelvic wall. Patient was started on empirical antibiotic Zosyn and vancomycin. Pt states she is feeling little better today. Still has moderate pain and swelling in the pubic region. Pt had bed side I & D on 07/12/18. Still has purulent discharge. She did required IV pain medication during dressing change today. Pt afraid to go home since she still need daily dressing changes. - Exam Vitals: Temp Pulse Resp BP Pulse Ox 98.9 F 60 16 137/65 94 07/13/18 15:25 07/13/18 15:25 07/13/18 15:25 07/13/18 15:25 07/13/18 15:25 Exam: Gen: Alert, awake, Oriented to time,place and person Chest: Diminished breath sounds B/L, No wheezing, No crackles, No rales Heart: S1S2+ RRR No murmurs Abd: Soft, NT, BS +, No organomegaly Ext: No edema, pulses are palpable, No calf tenderness : Improving erythema and swelling. s/p I & D, wound packed with gauze. Still has some purulent discharge. Neuro : Benign findings Skin: No rash. - Assessment and Plan (1) Cellulitis of pubic region Current Visit: Yes Status: Acute Assessment and Plan: Abscess over Supra pubic region Continue draining now I & D done by Manager Quality Dr. Xiao Wound cx - P Cont empirical antibiotic with IV Zosyn and vancomycin for one more day may switch to PO Abx once we get wound cx report continue symptomatic and supportive care with local warm compressions and analgesics started on IV analgesics Since pt is still requiring IV pain medication and does need one more day IV abx , will switch her to full admission today. (2) Anxiety Current Visit: Yes Status: Acute Assessment and Plan: Resumed home medication (3) Migraine Current Visit: Yes Status: Chronic Assessment and Plan: Resumed home medications - Time Spent with Patient Total time spent is greater than 50% in coordination of care (as documented) at patient's floor/unit and/or counseling patient: Internal Medicine: Result - Labs CBC & Chem 7: 07/11/18 02:48 07/12/18 04:38 Consult Discharge Plan - Plan Referrals: Renetta Edwards MD [Primary Care Provider] - (FOLLOW UP HAS BEEN REQUESTED.) Jace Mccollum MD [Partnered Physician] - 07/15/18 11:45 am (3) Migraine Qualifiers: Migraine type: unspecified Status migrainosus presence: without status migrainosus Intractability: not intractable Qualified Code(s): G43.909 - Migraine, unspecified, not intractable, without status migrainosus
[2018-07-14] MEDS: *HR* Enoxaparin 40 MG/0.4 ML SYRINGE SQ SCH (05:39)
[2018-07-14] MEDS: Acetaminophen 325 MG TABLET PO PRN (05:49)
[2018-07-14 06:46] LABS: Basophils # 0.1 K/mcL (0.0-0.2); Basophils % 0.6 %; Eosinophils # 0.4 K/mcL (0.0-0.6); Eosinophils % 4.6 %; Hematocrit 41.8 % (35.3-44.9); Hemoglobin 13.9 g/dL (11.5-15.4); Immature Granulocytes % 0.6 % (0-4); Lymphocytes # 3.6 K/mcL (0.6-4.6); Lymphocytes % 40.9 %; Mean Corpuscular HGB Conc 33.3 g/dL (31.6-35.5); Mean Corpuscular Hemoglobin 28.2 pg (28.0-33.3); Mean Corpuscular Volume 84.8 fL (83.0-100.0); Mean Platelet Volume 10.8 fL (9.4-12.4); Monocytes # 0.6 K/mcL (0.0-1.3); Monocytes % 7.3 %; Platelet Count 205 K/mcL (140-400); Red Blood Count 4.93 M/mcL (3.82-4.97); Red Cell Distribution Width 13.1 % (11.5-14.5)
[2018-07-14] MEDS ORDERED: Ketorolac 30 MG/ML VIAL IVP PRN (09:08)
[2018-07-14] MEDS: BuPROPion SR (12 HR) 100 MG TABLET PO SCH ×2 (09:11→20:50)
[2018-07-14] MEDS: Loratadine 10 MG TABLET PO SCH (09:11)
[2018-07-14] MEDS: Topiramate 100 MG TABLET PO SCH ×2 (09:11→20:49)
[2018-07-14] MEDS: Piperacillin/Tazobactam 3.375 GM in 0.9 % Sodium Chloride Mini Bag 100 ML IVPB SCH ×2 (09:12→15:17)
[2018-07-14] MEDS: clonazePAM 0.5 MG TABLET PO PRN (09:17)
--- NOTE | 2018-07-14 09:50 | Discharge Summary ---
- NOTES TO OUTPATIENT PROVIDER Notes to Outpatient Provider: Patient will be discharged on oral antibiotics and pain medication for I&D of vulvar abscess. Date of Encounter: 07/14/18 Time of Encounter: 09:47 - Discharge Diagnosis (1) Cellulitis of pubic region Priority: Primary Status: Acute Assessment and Plan: Patient presented with cellulitis of suprapubic region Empiric antibiotics with think and Zosyn started on admission Incision and drainage performed on 07/12/18, wound cultures collected Wound cultures grew Staphylococcus aureus, sensitivities pending Patient has been having worsened pain with dressing changes, exacerbated by anxiety Patient has been receiving IV fentanyl for pain control We will transition patient to oral pain medication and oral antibiotics before discharge (2) Anxiety Priority: Secondary Status: Chronic Assessment and Plan: Patient has chronic history of anxiety for which she takes Wellbutrin at home She was given Klonopin here by [employer]AMMER [employer]NER to assist with anxiety around her dressing changes She has requested that she receive this medication prior to dressing changes We will defer to H[employer]MER [employer]NER has been doing her dressing changes up to this point We will continue her home anxiolytics Hospital course: Ms. Canchola is a 38 year old female with the chief complaint of a lesion on the suprapubic area that was present for a week before admission. It seemed to be growing in size so, so she went to the urgent care the night before admission where she was given Bactrim. The lesion did not improve and her symptoms of pain worsened so she presented to the emergency department on . Imaging showed cellulitis of the anterior abdominal wall and so she was admitted for cellulitis. She denied any exposure to STDs or any previous history of cellulitis. She did have a Ablation performed in May for endometritis. Her past medical history consists of hyperlipidemia, and hypertension, anxiety, depression. On 07/11/18 she was started on empiric vancomycin and Zosyn. On 07/12/18 she developed a function fluctuance to the lesion in the suprapubic area and so HAMMER [employer]NER performed an incision and drainage of the lesion, wound cultures were sent. The wound cultures came back positive with Staphylococcus aureus, sensitivities are not back. The patient does have a history of MRSA. The patient has had her iodoform dressing packing in the wound change daily, this has been causing her severe pain necessitating the use of IV fentanyl. The patient was originally planning to go home and have her changing the dressings but due to the pain she was anxious about leaving. We have discussed with the patient that she cannot continue to be on IV pain medications and we will attempt to transition her to oral pain medications after today's dressing change and before discharge. We will also transition her to oral antibiotics for discharge. At this time she denies fever or chills, her vital signs are stable, and her clinical disposition is improved. Discharge discussed with: patient, family - Time Spent with Patient Total time spent providing and/or coordinating discharge services: - Discharge Medications Home Medications: Cetirizine HCl [Zyrtec] 10 mg PO DAILY 05/25/18 [History] Promethazine HCl 12.5 mg PO TID PRN 05/25/18 [History] Rizatriptan Benzoate [Maxalt] 10 mg PO Q2H PRN 05/25/18 [History] Topiramate [Topamax] 100 mg PO BID 05/25/18 [History] buPROPion HCl [Bupropion HCl Sr] 200 mg PO BID 05/25/18 [History] clonazePAM [Klonopin] 0.5 mg PO DAILY PRN 05/25/18 [History] Allergies/Adverse Reactions: 3 Allergy/AdvReac Type Severity Reaction Status Date / Time No Known Allergies Allergy Verified 07/09/18 19:59 Date of admission: 07/13/18 17:52 Primary care physician: Renetta Edwards Discharging clinician: Kobe Kimbrough Anticipated date of discharge: 07/14/18 - Constitutional Vitals: Temp Pulse Resp BP Pulse Ox 98.1 F 75 15 127/72 100 07/14/18 06:47 07/14/18 06:47 07/14/18 06:47 07/14/18 06:47 07/14/18 06:47 General appearance: Present: cooperative, A&O X 3, no acute distress, answers questions appropriately Exam: Patient in no acute distress alert and oriented 3 Heart in regular rate and rhythm without murmur or gallop Lungs clear to auscultation without wheeze, rhonchi, rales Abdomen nontender, soft Skin warm and dry Erythematous region around original lesion has receded, area is still extremely tender - Patient Status Disposition: Home, Self-Care Condition: Good Functional capacity at discharge: independent ambulation Overall status at discharge: patient is progressing back to baseline - Discharge Instructions Follow Up With: Renetta Edwards MD [Primary Care Provider] - (FOLLOW UP HAS BEEN REQUESTED.) Jace Mccollum MD [Partnered Physician] - 07/15/18 11:45 am - Diet and Activity Activity: increase activity as tolerated, return to school once cleared by your PCP/specialist Diet: regular diet
--- NOTE | 2018-07-14 15:29 | Internal Med Progress Note ---
<KimbroughKobe Sabino - Last Filed: 07/14/18 15:26> Hospitalist Progress Note - Encounter Date of Encounter: 07/14/18 Time of Encounter: 15:26 - Subjective Interval History: No acute events overnight. The patient states she is still having severe pain with dressing change for her incision and drainage site. We have informed her that we will begin to transition her to oral pain control and oral antibiotics. We are waiting for sensitivities to come back on her wound cultures before we can transition to oral antibiotics. Once she is transitioned to oral pain control and antibiotics she can be discharged. The patient understands and agrees with the plan of care. The patient later currently denies any fever, chills, nausea, vomiting, abdominal pain, chest pain, shortness of breath. - Exam Vitals: Temp Pulse Resp BP Pulse Ox 98.3 F 96 15 117/74 100 07/14/18 11:55 07/14/18 11:55 07/14/18 11:55 07/14/18 11:55 07/14/18 11:55 Exam: Patient no acute distress, alert and oriented 3 Heart regular rate and rhythm, no murmur, rub, gallop Lungs clear to auscultation, no wheeze, rales, rhonchi Abdomen soft and nontender Suprapubic area is extremely tender, area of erythema around incision and drainage site is receding Legs nonedematous Skin warm and dry - Assessment and Plan (1) Cellulitis of pubic region Current Visit: Yes Status: Acute Assessment and Plan: Patient is 2 days post incision and drainage of lesion of the vulva, cellulitis of suprapubic region She is currently receiving oral vancomycin, wound cultures have been collected and were positive for Staphylococcus aureus, sensitivities pending Once sensitivities have been finalized we can transition to oral antibiotics We are also in the process of transitioning to oral pain control, the pain admission is still having severe pain with dressing changes Once the patient is transitioned to oral pain control and antibiotics she can be discharged next She is not currently exhibiting any signs of systemic infection, and her clinical disposition is stable (2) Anxiety Current Visit: Yes Status: Chronic Assessment and Plan: The patient has a history of chronic anxiety and depression, for which she takes Wellbutrin She has also been given Klonopin here by the [facility] team in order to help with her severe pain and anxiety around having her dressings changed from her I&D site - Time Spent with Patient Total time spent is greater than 50% in coordination of care (as documented) at patient's floor/unit and/or counseling patient: less than 15 minutes Plan of Care Discussed with: patient Internal Medicine: Result - Labs CBC & Chem 7: 07/14/18 04:54 07/12/18 04:38 Labs: Short CBC 07/14/18 Range/Units 04:54 WBC 8.8 (4.3-11.1) K/mcL Hgb 13.9 (11.5-15.4) g/dL Hct 41.8 (35.3-44.9) % Plt Count 205 (140-400) K/mcL Neutrophils # 4.0 (1.6-8.9) K/mcL Consult Discharge Plan - Plan Referrals: Renetta Edwards MD [Primary Care Provider] - (FOLLOW UP HAS BEEN REQUESTED.) Jace Mccollum MD [Partnered Physician] - 07/15/18 11:45 am <Evan Howard - Last Filed: 07/14/18 15:46> Hospitalist Progress Note - Encounter Date of Encounter: 07/14/18 - Exam Vitals: Temp Pulse Resp BP Pulse Ox 98.3 F 96 15 117/74 100 07/14/18 11:55 07/14/18 11:55 07/14/18 11:55 07/14/18 11:55 07/14/18 11:55 - Assessment and Plan (1) Cellulitis of pubic region Current Visit: Yes Status: Acute (2) Anxiety Current Visit: Yes Status: Chronic (3) Migraine Current Visit: Yes Status: Chronic - Time Spent with Patient Total time spent is greater than 50% in coordination of care (as documented) at patient's floor/unit and/or counseling patient: Internal Medicine: Result - Labs CBC & Chem 7: 07/14/18 04:54 07/12/18 04:38 Labs: Short CBC 07/14/18 Range/Units 04:54 WBC 8.8 (4.3-11.1) K/mcL Hgb 13.9 (11.5-15.4) g/dL Hct 41.8 (35.3-44.9) % Plt Count 205 (140-400) K/mcL Neutrophils # 4.0 (1.6-8.9) K/mcL - Attending Attestation I have seen and examined this pt independently. I have discussed with resident physician Dr Kimbrough regarding the management plan. Agree with the documentation. <Evan Howard - Last Filed: 07/14/18 15:46> (3) Migraine Qualifiers: Migraine type: unspecified Status migrainosus presence: without status migrainosus Intractability: not intractable Qualified Code(s): G43.909 - Migraine, unspecified, not intractable, without status migrainosus
[2018-07-15] MEDS: *HR* HYDROcodone/Acet 5/325 mg TABLET PO PRN (03:33)
[2018-07-15] MEDS: *HR* Enoxaparin 40 MG/0.4 ML SYRINGE SQ SCH (05:12)
[2018-07-15] MEDS: BuPROPion SR (12 HR) 100 MG TABLET PO SCH (07:54)
[2018-07-15] MEDS: Loratadine 10 MG TABLET PO SCH (07:54)
[2018-07-15] MEDS: Topiramate 100 MG TABLET PO SCH (07:54)
--- NOTE | 2018-07-15 10:12 | Discharge Summary ---
<Kobe Kimbrough Sabino - Last Filed: 07/15/18 13:32> - NOTES TO OUTPATIENT PROVIDER Notes to Outpatient Provider: Patient was admitted and treated for suprapubic cellulitis, cultured MRSA sensitive to Clindamycin. She will need OBGYN follow up and notes for school. Date of Encounter: 07/15/18 Time of Encounter: 10:10 - Discharge Diagnosis (1) Cellulitis of pubic region Priority: Primary Status: Acute Assessment and Plan: Patient was admitted and treated for pubic cellulitis with suspected abscess on the vulva Incision and drainage was performed Wound cultures yielded MRSA, sensitive to clindamycin Patient is in clinically stable condition for discharge She will be discharged with clindamycin for one week (2) Anxiety Priority: Secondary Status: Chronic Assessment and Plan: Patient has history of chronic anxiety and depression treated with Wellbutrin Hospital course: Ms. Canchola is a 38 year old female with a past medical history of hypertension and hyperlipidemia. She also has a history of endometritis with ablation done by Dr. Mccollum in May. She presented to the emergency department on 07/10/18 for suprapubic swelling and tenderness that did not improve after a dose of Bactrim from the urgent care. There is also a pimple in the suprapubic region that seemed to have been worsening for about a week. CT abdomen and pelvis showed cellulitis of the anterior pelvic wall, she was started on empirical Zosyn and vancomycin. During the course of the hospital stay the symptoms began to improve but the pimple like area in the suprapubic region got progressively bigger and developed fluctuance. Incision and drainage was performed which did not yield purulent material, mostly granulomatous tissue. Wound cultures were taken which grew methicillin- resistant Staphylococcus aureus, which was sensitive to clindamycin. The patient was will be discharged with clindamycin for approximately 1 week along with probiotics. At no time did the patient develop fever or chills, her clinical condition remained stable throughout the hospital course. She was having severe pain with dressing changes and packing of the incision and drainage site, which was treated with IV fentanyl and then D escalated to oral pain control. At the time of discharge she has been D escalated to oral pain control and oral antibiotics. Discharge discussed with: patient, family - Time Spent with Patient Total time spent providing and/or coordinating discharge services: Less than 30 minutes - Discharge Medications Prescriptions: Clindamycin [Cleocin] 150 mg PO Q6HR #28 capsule Lactobacillus Combo No.10 [Probiotic] 1 each PO DAILY 7 Days #7 capsule Home Medications: Cetirizine HCl [Zyrtec] 10 mg PO DAILY 05/25/18 [History] Promethazine HCl 12.5 mg PO TID PRN 05/25/18 [History] Rizatriptan Benzoate [Maxalt] 10 mg PO Q2H PRN 05/25/18 [History] Topiramate [Topamax] 100 mg PO BID 05/25/18 [History] buPROPion HCl [Bupropion HCl Sr] 200 mg PO BID 05/25/18 [History] clonazePAM [Klonopin] 0.5 mg PO DAILY PRN 05/25/18 [History] Clindamycin [Cleocin] 150 mg PO Q6HR #28 capsule 07/15/18 [Rx] Lactobacillus Combo No.10 [Probiotic] 1 each PO DAILY 7 Days #7 capsule [Rx] Allergies/Adverse Reactions: 3 Allergy/AdvReac Type Severity Reaction Status Date / Time No Known Allergies Allergy Verified 07/09/18 19:59 Date of admission: 07/13/18 17:52 Primary care physician: Renetta Edwards Discharging clinician: Kobe Kimbrough Anticipated date of discharge: 07/15/18 - Constitutional Vitals: Temp Pulse Resp BP Pulse Ox 98.0 F 93 15 127/81 99 07/15/18 07:10 07/15/18 07:10 07/15/18 07:10 07/15/18 07:10 07/15/18 07:10 General appearance: Present: cooperative, A&O X 3, no acute distress, answers questions appropriately Exam: Patient in no acute distress, alert and oriented 3 Heart regular rate and rhythm, without murmur, gallop Lungs clear to auscultation, no wheeze, rales, rhonchi Abdomen soft and nontender, bowel sounds normal Suprapubic area tender, erythematous area around incision and drainage receding Skin warm and dry - Patient Status Disposition: Home, Self-Care Condition: Good Functional capacity at discharge: independent ambulation Overall status at discharge: patient is progressing back to baseline - Discharge Instructions Follow Up With: Renetta Edwards MD [Primary Care Provider] - 07/22/18 10:45 am () Jace Mccollum MD [Partnered Physician] - 07/15/18 11:45 am - Diet and Activity Activity: return to school once cleared by your PCP/specialist Diet: regular diet <Evan Howard - Last Filed: 07/15/18 13:41> Date of Encounter: 07/15/18 - Discharge Diagnosis (1) Cellulitis of pubic region Status: Acute (2) Anxiety Status: Chronic (3) Migraine Status: Chronic Qualifiers: Migraine type: unspecified Status migrainosus presence: without status migrainosus Intractability: not intractable Qualified Code(s): G43.909 - Migraine, unspecified, not intractable, without status migrainosus Hospital course: Ms. Canchola is a 38 year old female - Time Spent with Patient Total time spent providing and/or coordinating discharge services: Date of admission: 07/13/18 17:52 Primary care physician: Renetta Edwards - Constitutional Vitals: Temp Pulse Resp BP Pulse Ox 98.6 F 95 16 123/72 100 07/15/18 10:15 07/15/18 10:15 07/15/18 10:15 07/15/18 10:15 07/15/18 10:15 - Attending Attestation I have seen and examined this patient independently. I have discussed with resident physician Dr. Kimbrough regarding the discharge and follow up plan. Agree with the documentation.
[2018-07-15 10:16] VITALS: BP 123/72
[2018-07-15] MEDS ORDERED: Aminoglycoside Consult 1 EACH MC ONE (11:18)
== END 2018-07-15 11:19 | disposition home or self-care (01) | DRG 746 ==
LOC: EMEROOARM 11:47 → 3BNU 11:47 → SUATTDRO 07-13 17:52
PROVIDERS: ADMIT Internal Medicine; ATTEND Internal Medicine